=== PATIENT | male | born 1945 | race Caucasian/White ===

== ENCOUNTER 2016-07-24 15:44 | Emergency (ER) | payer MEDICARE ==
[2016-07-24 16:40] VITALS: BP 142/88
[2016-07-24] MEDS ORDERED: Tetan/Diph/Pertus SYR(Tdap)* 0.5 ML SYR(BOOSTRIX) use SYR IM ONE (16:50)
--- NOTE | 2016-07-24 17:17 | RAD ---
INDICATION: Swelling. Evaluate for foreign body. COMPARISON: None TECHNIQUE: AP, lateral, and oblique views were obtained. FINDINGS: There is moderate distal interphalangeal joint space narrowing and moderate proximal interphalangeal joint space narrowing consistent with osteoarthritis. There is minor osteoarthritis about the first carpometacarpal articulation. There is an old distal ulnar fracture. There is no radiopaque foreign body IMPRESSION: NO FRACTURE OR FOREIGN BODY. UNDERLYING OSTEOARTHRITIS
[2016-07-24] MEDS ORDERED: cefTRIAXone VIAL(*) 1,000 MG VIAL IM ONE (17:33)
[2016-07-24] MEDS ORDERED: Lidocaine 1% MPF* 2 ML VIAL ONE (17:37)
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
== END 2016-07-24 17:52 | disposition home or self-care (01) ==
LOC: UCEAST 15:44
DX: S61.432A Puncture wound without foreign body of left hand, initial encounter (principal); L03.114 Cellulitis of left upper limb; W26.8XXA Contact with other sharp object(s), not elsewhere classified, initial encounter; Y93.89 Activity, other specified; Y92.9 Unspecified place or not applicable; Z23 Encounter for immunization; Z87.891 Personal history of nicotine dependence
CPT/HCPCS: 90471; 90715; 96372; 99212; G0463; J0696

== ENCOUNTER 2016-10-15 15:16 | Emergency (ER) | payer MEDICARE ==
--- NOTE | 2016-10-15 16:18 | RAD ---
INDICATION: Productive cough, shortness of breath. COMPARISON: Comparison is made with a prior chest x-ray study from July 17, 2011. TECHNIQUE: Dual-energy PA and lateral views of the chest were obtained. FINDINGS: The heart is within normal limits in size. Mediastinal and hilar contours appear within normal limits. The lungs are hyperinflated and clear. There is flattening of the diaphragms suggestive of chronic obstructive pulmonary disease. No pleural effusion is seen. IMPRESSION: FINDINGS CONSISTENT WITH COPD, NO EVIDENCE FOR ACUTE FINDING.
[2016-10-15 17:11] VITALS: BP 114/66
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
== END 2016-10-15 17:20 | disposition home or self-care (01) ==
LOC: UCEAST 15:16
DX: J32.9 Chronic sinusitis, unspecified (principal); J44.9 Chronic obstructive pulmonary disease, unspecified; E03.9 Hypothyroidism, unspecified; F41.9 Anxiety disorder, unspecified; Z87.891 Personal history of nicotine dependence; Z91.030 Bee allergy status; Z91.010 Allergy to peanuts
CPT/HCPCS: 71020; 93005; 99212; G0463